=== PATIENT | male | born 2000 | race African-American/Black ===

== ENCOUNTER 2024-11-30 10:51 | Emergency (ER) | payer OTHER, SELFPAY ==
--- NOTE | 2024-11-30 12:20 | ED.FALL ---
HPI - Fall General Chief Complaint: Fall Stated Complaint: fall Time Seen by Provider: 11/30/24 12:11 Source: patient Mode of arrival: ambulatory Limitations: no limitations History of Present Illness HPI Narrative: 24 years old male was under the influence of alcohol and drugs last night, fell of platform roughly 4-5 feet above the ground, not sure script back of his head in the way going down, later got arrested by the police and somehow twisted his right foot during the arrest. He denies other injuries. Related Data Allergies Allergy/AdvReac Type Severity Reaction Status Date / Time No Known Allergies Allergy Verified 11/30/24 10:54 Review of Systems Review of Systems: All systems reviewed & are unremarkable except as noted in HPI and below Exam Narrative: General appearance: Well-developed, well-nourished Skin: Normal color Head: Normocephalic, abrasions at the occipital area, no active bleeding Eyes: Clear conjunctiva ENT: Oropharynx normal, ears normal, nose normal Neck: Supple, nontender Chest and respiratory: Airway patent, no respiratory distress, no accessory muscle use Heart: Regular rate/rhythm Abdomen: Soft, nontender, no organomegaly, quiet bowel sounds Vascular: Normal peripheral pulses, normal capillary refill. 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 Differential Diagnosis Differential diagnosis: Likely other (As above) Imaging Data My impression: Impressions Ankle X-Ray 11/30/24 11:16 Impression: Unremarkable right ankle. Head CT 11/30/24 11:17 Impression: No significant abnormality seen. Foot X-Ray 11/30/24 13:12 Impression: Unremarkable right foot radiographs. Radiologist's impression: Impressions Ankle X-Ray 11/30/24 11:16 Impression: Unremarkable right ankle. Head CT 11/30/24 11:17 Impression: No significant abnormality seen. Critical Care Time Critical Care Time Critical Care Time: No Discharge Plan Discharge Clinical Impression: CHI (closed head injury), Foot sprain Patient Disposition: Home, Self-Care Condition: Stable Instructions: Head Injury (ED), Foot Sprain (ED) Additional Instructions: Return if symptoms are worsening , call your family physician for appointment, take Tylenol, ibuprofen 600 every 6 hours as as needed for aches and pain, continue home medications. Crutches as needed Patient Language: Palauan Follow-up/Referrals: PHYSICIAN,FENCE MAKING MACHINE OPERATOR [Non-Staff] - Amor Farr MD [Physician] - 12/04/24
[2024-11-30 13:15] VITALS: BP 115/72; PULSE 85; RESP 16; TEMP 36.6; O2SAT 99
== END 2024-11-30 13:44 | disposition home or self-care (01) ==
PROVIDERS: Emergency Provider Emergency Medicine; PCP Family Medicine
DX: S93.601A Unspecified sprain of right foot, initial encounter (principal); S09.90XA Unspecified injury of head, initial encounter; X50.9XXA Other and unspecified overexertion or strenuous movements or postures, initial encounter; W17.89XA Other fall from one level to another, initial encounter
CPT/HCPCS: 70450; 73610; 73630; 99284